=== PATIENT | female | born 1965 | race Caucasian/White ===

== ENCOUNTER 2016-04-20 07:20 | Day surgery (SDC) | payer MEDICAID ==
[~2016-04-20] VITALS: Ht 152.4 cm; Wt 61.7 kg
[~2016-04-20 07:20] MED LIST: ACCURETIC 10-121 TAB PO; IBUPROFEN600 MG PO; MINIVELLE1 EAC1 TRANSDERM; PERCOCET 10/3251 TA1 PO
[2016-04-20 07:58] LABS: BASOPHILS 0.5 % (0.0-2.0); EOSINOPHILS 4.1 % (0-7); HEMATOCRIT 38.3 % (36.0-48.0); HEMOGLOBIN 13.1 g/dL (12-16); LYMPHOCYTES 35.8 % (15-50); MCHC 34.2 g/dL (31.0-37.0); MCV 90.5 fL (80.0-100.0); MEAN PLATELET VOLUME 10.6 fL (7.4-10.4); MONOCYTES 11.1 % (2-11); NEUTROPHILS 48.5 % (40-80); PLATELET COUNT 222 10x3/uL (130-400); RBC 4.23 10x6/uL (4.00-5.40); RDW 12.1 % (11.5-14.5); WBC 5.7 10x3/uL (4.8-10.8)
[2016-04-20 08:04] LABS: CALC OSMOLALITY 282 mosm/kg (275-300); CALCIUM 9.7 mg/dL (8.5-10.1); CARBON DIOXIDE 31.9 mmol/L (21.0-32.0); CHLORIDE - SERUM 106 mmol/L (98-107); CREATININE - SERUM 0.8 mg/dL (0.6-1.3); GLUCOSE 109 mg/dL (74-106); POTASSIUM - SERUM 3.5 mmol/L (3.5-5.1); SODIUM 142 mmol/L (136-145); UREA NITROGEN 11 mg/dL (7-18); eGFR NON AFRICAN AMERICAN 80 mL/min (90-120)
[2016-04-20 08:17] VITALS: BP 123/61; Ht 152.4 cm; Wt 61.7 kg
[2016-04-20] MEDS ORDERED: DILAUDID2 MG PO (15:40)
--- NOTE | 2016-04-20 17:10 | NUR ---
C/O NAUSEA. ZOFRAN 4MG SLOW IVP GIVEN. INFORMED HER I COULD CALL HER STEP MOTHER OR STEP FATHER FOR DISCHARGE RIDE. STATES "SHE'S NOT OUT OF WORK YET." STATES GETS OFF AT 5:40. STATES "CAN'T THINK RIGHT NOW, HURTING TOO BAD AND HAVING NAUSEA."
--- NOTE | 2016-04-20 17:28 | NUR ---
APPEARS TO BE SLEEPING, RESPIRATIONS QUIET AND EASY ON 1L NC. OXYGEN DISCONTINUED.
--- NOTE | 2016-04-20 18:00 | NUR ---
DISCHARGE INSTRUCTIONS AND RX FOR DILAUDID GIVEN, VOICED UNDERSTANDING. DISCHARGED HOME VIA WC.
--- NOTE | 2016-04-21 13:15 | OP ---
PATIENT NAME: IRENA GALARZA MEDICAL RECORD: [id number] :61 LOCATION:D.OPS ADMISSION DATE: SURGEON: SAMUEL LEE MD DATE OF OPERATION: 04/20/2016 PREOPERATIVE DIAGNOSES: 1. Biliary dyskinesia. 2. Common bile duct dilatation. 3. Hypertension. 4. Hypercholesterolemia. POSTOPERATIVE DIAGNOSES: 1. Biliary dyskinesia. 2. Common bile duct dilatation. 3. Hypertension. 4. Hypercholesterolemia. PROCEDURES: 1. Laparoscopic cholecystectomy with intraoperative cholangiogram. 2. Fluoroscopic interpretation. SURGEON: Samuel Lee MD REPORT OF PROCEDURE: The patient's abdomen was prepped and draped in sterile fashion. A cutdown was made on the superior aspect of the umbilicus, 0 Vicryls were placed in the fascia bilaterally and the fascia was incised with 15-blade. I then bluntly entered the peritoneal cavity and placed a 12-mm Mirna port. Under direct visualization, a 5 mm trocar was placed in the epigastrium and 2 more 5-mm trocars were placed on the right subcostal region. The gallbladder was grasped and elevated. There were no sign of any inflammatory changes. The cystic artery and cystic duct were dissected free. The cystic duct was clipped proximally and a small opening was made. At this point, a Cook cholangiocath was brought through the abdominal wall and it was placed in the cystic duct. A cholangiogram was performed under fluoroscopic guidance. It showed good filling of the common bile duct with good spillage of contrast out into the duodenum. There were no signs of any masses, lesions, or strictures. At this point, the cholangiocath was removed. The cystic duct was clipped proximally and distally and ligated. The cystic artery was clipped proximally and distally and ligated. The gallbladder was taken off the liver bed using electrocautery. Any bleeding from the liver bed was then treated with electrocautery. We irrigated out the right upper quadrant and assured there was no sign of any bleeding or bile leakage. At this point, the ports and insufflation were then removed and the gallbladder was taken out through the umbilicus. The umbilical fascia was closed with interrupted 0 Vicryls times 3. The wounds were then irrigated out with normal saline and infused with 10 mL of 0.25% Marcaine with epinephrine. The skin incisions were all closed with subcutaneous 5-0 Monocryl and dressed appropriately. COMPLICATIONS: None. CONDITION: Stable. ANESTHESIA: General endotracheal and local. BLOOD LOSS: Minimal. OPERATIVE REPORT [id number] IRENA GALARZA TRANSINT:[id number] Voice Confirmation ID: [id number] DOCUMENT ID: [id number] SAMUEL LEE MD at 1315 CC: SHARRON CAUSEY DO [id number] DICTATION DATE: 04/20/16 1550 STILL OPERATOR GIN: 04/20/16 1600 [facility] [place] 04/20/16 [facility] [address] [id number]
== END 2016-04-20 18:30 | disposition home or self-care (01) ==
LOC: D.OPS 07:20
PROVIDERS: Surgery
DX: K81.1 Chronic cholecystitis (principal); L92.8 Other granulomatous disorders of the skin and subcutaneous tissue; K83.8 Other specified diseases of biliary tract; I10 Essential (primary) hypertension; E78.00 Pure hypercholesterolemia, unspecified

== ENCOUNTER → 2016-06-07 10:11 | Outpatient (CLI) | payer OTHER ==
[2016-04-20 08:17] VITALS: BMI 26.6
[~2016-06-07 10:11] MED LIST changes: +DILAUDID2 MG PO
== END | disposition home or self-care (01) ==
LOC: D.RAD 10:11
DX: Z02.71 Encounter for disability determination (principal)

== ENCOUNTER → 2017-09-25 16:53 | Outpatient (CLI) | payer MEDICAID ==
[2016-04-20 08:17] VITALS: BMI 26.6
== END | disposition home or self-care (01) ==
LOC: D.MRI 16:53
DX: M54.5 Low back pain (principal)

== ENCOUNTER → 2020-08-10 09:06 | Outpatient (CLI) | payer BC ==
[2016-04-20 08:17] VITALS: BMI 26.6
== END | disposition home or self-care (01) ==
LOC: D.MRI 08-03 09:00
PROVIDERS: ATTEND Emergency Medicine
DX: R93.5 Abnormal findings on diagnostic imaging of other abdominal regions, including retroperitoneum (principal)